=== PATIENT | male | born 1985 | race Caucasian/White ===

== ENCOUNTER 2019-02-19 11:20 | Emergency (ER) | payer BC ==
[2019-02-19] MEDS ORDERED: HYDROcodone/Acetaminophen 5/325 mg Tablet ONE (11:57)
[2019-02-19] MEDS ORDERED: Adacel (T-DAP) 0.5 ML SYRINGE ONE (11:57)
== END 2019-02-19 12:07 | disposition home or self-care (01) ==
LOC: MADERS 11:20
DX: S91.201A Unspecified open wound of right great toe with damage to nail, initial encounter (principal); F17.210 Nicotine dependence, cigarettes, uncomplicated; W23.0XXA Caught, crushed, jammed, or pinched between moving objects, initial encounter
CPT/HCPCS: 90471; 90715

== ENCOUNTER 2020-06-07 13:35 | Emergency (ER) | payer BC ==
[2020-06-07] MEDS ORDERED: HYDROcodone/Acetaminophen 5/325 mg Tablet ONE (14:15)
[2020-06-07] MEDS ORDERED: Ibuprofen 800 MG TAB ONE (14:15)
== END 2020-06-07 14:48 | disposition home or self-care (01) ==
LOC: MADERS 13:35
DX: S93.491A Sprain of other ligament of right ankle, initial encounter (principal); F17.210 Nicotine dependence, cigarettes, uncomplicated; X50.1XXA Overexertion from prolonged static or awkward postures, initial encounter; Y99.0 Civilian activity done for income or pay

== ENCOUNTER 2020-06-18 22:10 | Emergency (ER) | payer BC ==
[2020-06-18] MEDS ORDERED: Lidocaine 1% (PF) 30 ML VIAL ONE (22:41)
[2020-06-18] MEDS ORDERED: Ondansetron ODT 4 MG TAB ONE (22:54)
[2020-06-18] MEDS ORDERED: Sulfameth/Trimethoprim DS 800-160mg TAB ONE (23:36)
== END 2020-06-19 00:02 | disposition home or self-care (01) ==
LOC: MADERS 22:10
DX: K61.0 Anal abscess (principal); F17.210 Nicotine dependence, cigarettes, uncomplicated
CPT/HCPCS: 46050; J2001; Q0162

== ENCOUNTER 2022-06-22 15:01 | Emergency (ER) | payer BC ==
[~2022-06-22 15:01] MED LIST: Iopamidol 370 76% 100 ML VIAL ONE
[2022-06-22] MEDS ORDERED: Morphine 4 MG/ML VIAL ONE (15:31)
[2022-06-22] MEDS ORDERED: Ondansetron PF 4 MG/2 ML Vial ONE (15:31)
[2022-06-22 15:38] LABS: #Basophils 0.1 thou/uL (0.0-0.2); #Eosinphils 0.2 thou/uL (0.0-0.7); #Lymphocytes 1.8 thou/uL (1.20-3.40); #Neutrophils 9.1 thou/uL (1.40-6.50); %Basophils 1.2 % (0.0-1.0); %Eosinophils 1.4 % (0.0-10.0); %Lymphocytes 14.4 % (21.0-51.0); %Monocytes 8.4 % (0.0-10.0); %Neutrophils 74.7 % (42.0-75.0); Hemoglobin 16.8 g/dL (14.0-18.0); Mean Corpuscular HGB CONC 32.3 g/dL (32.0-36.0); Mean Corpuscular Hemoglobin 28.5 pg (27.0-31.0); Mean Corpuscular Volume 88.3 fl (78.0-98.0); Mean Platelet Volume 8.5 fL (7.4-10.4); Platelet Count 201 10x3/uL (130-400); RBC Distribution Width 12.5 % (11.5-14.5); Red Blood Cell (RBC) Count 5.91 mill/uL (4.70-6.10); White Blood Cell (WBC) Count 12.2 10x3/uL (4.8-10.8)
[2022-06-22 15:52] LABS: ALT (SGPT) 28 U/L (8-55); AST (SGOT) 22 U/L (5-34); Albumin 4.6 g/dL (3.5-5.0); Alkaline Phosphatase 62 U/L (40-110); Anion Gap 13 mmol/L (10-20); BUN (Urea Nitrogen) 18 mg/dL (8.9-20.6); Bilirubin, Total 0.6 mg/dL (0.2-1.2); Calc. Creatinine Clearance 0 mL/min (70-130); Calcium 9.6 mg/dL (7.8-10.44); Carbon Dioxide 23 mmol/L (22-29); Chloride 105 mmol/L (98-107); Estimated GFR 104; Globulin 3.1 g/dL (2.4-3.5); Glucose 101 mg/dL (70-105); Potassium 4.4 mmol/L (3.5-5.1); Protein, Total 7.7 g/dL (6.0-8.3); Sodium 137 mmol/L (136-145)
[2022-06-22 16:02] LABS: Prothrombin Time 13.1 sec (12.0-14.7)
[2022-06-22 16:03] LABS: PTT 26.9 sec (22.9-36.1)
== END 2022-06-22 18:00 | disposition short-term general hospital (02) ==
LOC: MADERS 15:01
DX: K46.0 Unspecified abdominal hernia with obstruction, without gangrene (principal); F17.210 Nicotine dependence, cigarettes, uncomplicated
CPT/HCPCS: 74177; 80053; 83605; 85025; 85610; 85730; 96374; 96375; J2270; J2405; Q9967